=== PATIENT | male | born 1990 | race Caucasian/White ===

== ENCOUNTER 2016-12-26 18:32 | Emergency (ER) | payer SELFPAY ==
[~2016-12-26 18:32] MED LIST: ADDERALL; ADDERALL20 MG PO; ATIVAN; ATV.5 PO; PREVACID; TOPAMAX
== END 2016-12-26 18:50 | disposition home or self-care (01) ==
LOC: ER 18:32
DX: K40.90 Unilateral inguinal hernia, without obstruction or gangrene, not specified as recurrent (principal); F32.9 Major depressive disorder, single episode, unspecified; F17.200 Nicotine dependence, unspecified, uncomplicated; Z88.2 Allergy status to sulfonamides; Z88.8 Allergy status to other drugs, medicaments and biological substances; Z79.899 Other long term (current) drug therapy
CPT/HCPCS: 99283